=== PATIENT | female | born 2000 | race Two or more races ===

== ENCOUNTER 2025-04-09 21:28 | Emergency (ER) | payer OTHER ==
[~2025-04-09] VITALS: Ht 160 cm; Wt 60.8 kg
[~2025-04-09 21:28] MED LIST: ZANTAC
[2025-04-10] MEDS ORDERED: METHYLPREDNISOLONE SOD SUCC 125 MG VIAL IM ONE (00:30)
[2025-04-10] MEDS ORDERED: DIPHENHYDRAMINE HCL 50 MG/ML VIAL 1ML IM ONE (00:30)
[2025-04-10] MEDS ORDERED: DIPHENHYDRAMINE HCL 50 MG/ML VIAL 1ML ONE (00:32)
[2025-04-10] MEDS ORDERED: METHYLPREDNISOLONE SOD SUCC 125 MG VIAL ONE (00:33)
[2025-04-10 01:31] LABS: URINE APPEARANCE Cloudy; URINE BILIRRUBIN Negative (NEGATIVE); URINE BLOOD Large; URINE COLOR Dark Yellow; URINE GLUCOSE Negative (NEGATIVE); URINE KETONE Negative (NEGATIVE); URINE LEUKOCYTE Moderate; URINE NITRATE Positive; URINE PROTEIN Trace (NEGATIVE)
[2025-04-10 01:34] LABS: URINE BACTERIA 1659.6 uL (0.0-1933); URINE EPITHELIAL CELLS 31.5 uL (0.0-38.8); URINE RBC 7.8 uL (0.0-20.8)
[2025-04-10 01:39] LABS: URINE CAST 0.14 uL (0.0-1.40)
[2025-04-10] MEDS ORDERED: CEPHALEXIN500 M1 PO (01:45)
== END 2025-04-10 02:16 | disposition home or self-care (01) ==
LOC: ER 21:42
PROVIDERS: General Practice
DX: R21 Rash and other nonspecific skin eruption (principal)

== ENCOUNTER 2025-04-10 20:01 | Emergency (ER) | payer OTHER ==
[~2025-04-10] VITALS: Ht 160 cm; Wt 60.8 kg
[~2025-04-10 20:01] MED LIST changes: +CEPHALEXIN500 M1 PO
[2025-04-10] MEDS ORDERED: CEFTRIAXONE SODIUM 1,000 MG VIAL IM STA (20:44)
[2025-04-10] MEDS ORDERED: CEFTRIAXONE SODIUM 1,000 MG VIAL ONE (20:45)
== END 2025-04-10 20:53 | disposition home or self-care (01) ==
LOC: ER 20:03
DX: N39.0 Urinary tract infection, site not specified (principal); R21 Rash and other nonspecific skin eruption; Z88.2 Allergy status to sulfonamides

== ENCOUNTER 2025-04-13 06:34 | Emergency (ER) | payer OTHER ==
[~2025-04-13] VITALS: Ht 160 cm; Wt 60.8 kg
[2025-04-13 06:54] VITALS: BP 93/66; O2SAT 98
[2025-04-13] MEDS ORDERED: ACETAMINOPHEN 500 MG GEL..CAP PO ONE (07:30)
[2025-04-13] MEDS ORDERED: KETOROLAC TROMETHAMINE 60 MG VIAL IM STA (08:43)
[2025-04-13 08:47] LABS: BASO % 0.3 % (0.1-1.2); EOS # 0.01 (0.04-0.54); EOS % 0.1 % (0.7-7.0); HEMOGLOBIN 12.8 g/dL (11.2-15.7); LYMPH # 0.97 (1.18-3.74); MEAN CORPUSCULAR HEMOGLOBIN 28.1 pg (25.6-32.2); MONO # 0.72 (0.24-0.82); MONO % 9.7 % (4.7-12.5); NEUT % 76.6 % (34.0-71.1); PLATELET COUNT 236 K/uL (163-369); RED BLOOD COUNT 4.55 M/uL (3.93-5.22); RED CELL DISTRIBUTION WIDTH 14.3 % (11.6-14.4)
[2025-04-13 08:55] LABS: PH,URINE 6.5 (5.0-8.0); URINE APPEARANCE Cloudy; URINE BILIRRUBIN Negative (NEGATIVE); URINE COLOR Dark Yellow; URINE GLUCOSE Negative (NEGATIVE); URINE KETONE Trace (NEGATIVE); URINE LEUKOCYTE Moderate; URINE NITRATE Negative; URINE PROTEIN 30 (NEGATIVE)
[2025-04-13] MEDS ORDERED: KETOROLAC TROMETHAMINE 60 MG VIAL IM ONE (08:56)
[2025-04-13 08:58] LABS: URINE BACTERIA 375.7 uL (0.0-1933); URINE RBC 37.7 uL (0.0-20.8); URINE WBC 840.2 uL (0.0-23.2)
[2025-04-13 09:09] LABS: URINE BLOOD TRACE
[2025-04-13 09:10] LABS: COVID-19 AG NEGATIVE (NEGATIVE)
[2025-04-13 09:15] LABS: INFLUENZA A AG NEGATIVE (NEGATIVE)
== END 2025-04-13 09:34 | disposition home or self-care (01) ==
LOC: ER 06:47
PROVIDERS: General Practice
DX: J11.1 Influenza due to unidentified influenza virus with other respiratory manifestations (principal); R50.9 Fever, unspecified; Z88.2 Allergy status to sulfonamides; Z20.822 Contact with and (suspected) exposure to COVID-19

== ENCOUNTER → 2025-05-14 | Emergency (ER) | payer OTHER ==
[~2025-05-14] VITALS: Ht 160 cm; Wt 60.8 kg
== END | disposition left against medical advice (07) ==
LOC: ER 21:54
DX: Z53.21 Procedure and treatment not carried out due to patient leaving prior to being seen by health care provider (principal)